=== PATIENT | female | born 1955 | race Caucasian/White ===

== ENCOUNTER 2019-12-05 05:58 | Day surgery (SDC) | payer OTHER, MEDICARE ==
[2019-12-05] MEDS ORDERED: ROPIVACAINE HCL (NAROPIN) /PF 5MG/ML 20ML VIAL IV ONE (05:59)
[2019-12-05] MEDS ORDERED: MIDAZOLAM HCL 2MG/2ML VIAL IV ONE (05:59)
[2019-12-05] MEDS ORDERED: GLYCOPYRROLATE 0.2 MG/ML ML IV ONE (05:59)
[2019-12-05] MEDS ORDERED: LIDOCAINE 2% MDV (20MG/ML) 20ML VIAL IV ONE (05:59)
[2019-12-05] MEDS ORDERED: PROPOFOL 10 MG/ML VIAL IV ONE (05:59)
[2019-12-05] MEDS ORDERED: FENTANYL PF 100MCG/2ML VIAL IV ONE (05:59)
[2019-12-05] MEDS ORDERED: DEXAMETHASONE 4 MG/ML 1ML VIAL IVP ONE (05:59)
[2019-12-05] MEDS ORDERED: *PACU ONLY* KETAMINE HCL 10 MG/ML (20ML) VIAL IV ONE (05:59)
[2019-12-05] MEDS ORDERED: CELECOXIB 100 MG CAPSULE PO ONE (06:00)
[2019-12-05] MEDS ORDERED: VANCOMYCIN 1GM/200ML PREMIX 1 GM/200 ML PIGGYBACK IVPB ONE (06:00)
[2019-12-05] MEDS ORDERED: FAMOTIDINE 20MG TABLET PO ONE (06:00)
[2019-12-05] MEDS ORDERED: METOCLOPRAMIDE 10 MG TABLET PO ONE (06:00)
[2019-12-05] MEDS ORDERED: CEFAZOLIN 2 Gram 2 GM/50 ML BAG IVPB ONE (06:00)
[2019-12-05] MEDS ORDERED: SCOPOLAMINE 1 PATCH TDSY TD ONE (06:00)
[2019-12-05] MEDS ORDERED: ACETAMINOPHEN 500 MG TABLET PO ONE (06:00)
[2019-12-05 06:17] LABS: URINE APPEARANCE CLEAR; URINE BILIRUBIN NEGATIVE (NEGATIVE); URINE BLOOD NEGATIVE (NEGATIVE); URINE COLOR YELLOW; URINE GLUCOSE (UA) NEGATIVE (NEGATIVE); URINE KETONE NEGATIVE (NEGATIVE); URINE LEUKOCYTE ESTERASE SMALL (NEGATIVE); URINE NITRITE NEGATIVE (NEGATIVE); URINE PROTEIN NEGATIVE (NEGATIVE); URINE UROBILINOGEN 0.2 E.U./dL (0.20 - 1.00)
[2019-12-05 06:24] LABS: URINE BACTERIA FEW; URINE EPITHELIAL CELLS 0 - 2 (FEW); URINE RBC 0 - 2 (NONE SEEN); URINE WBC 0 - 2 (0-2/hpf)
[2019-12-05] MEDS ORDERED: RINGERS SOLUTION,LACTATED 1,000 ML IV ONE ×2 (07:05→09:29)
[2019-12-05 07:36] LABS: ABO GROUP A; ANTIBODY SCREEN NEGATIVE (NEGATIVE); RH TYPE POSITIVE
[2019-12-05] MEDS ORDERED: ONDANSETRON 4 MG ODT TABLET SL PRN (08:14)
[2019-12-05] MEDS ORDERED: ACETAMINOPHEN W/ CODEINE 300MG/30MG TABLET PO PRN ×2 (08:14)
[2019-12-05] MEDS ORDERED: KETOROLAC 30 MG/ML VIAL IVP PRN (08:14)
[2019-12-05] MEDS ORDERED: BISACODYL 10 MG SUPP RC PRN (08:14)
[2019-12-05] MEDS ORDERED: METOCLOPRAMIDE 10 MG TABLET PO PRN (08:14)
[2019-12-05] MEDS ORDERED: PROMETHAZINE HCL 25 MG TABLET PO PRN (08:14)
[2019-12-05] MEDS ORDERED: HYDROCODONE/APAP 7.5/325MG TABLET PO PRN (08:14)
[2019-12-05] MEDS ORDERED: MAGNESIUM HYDROXIDE 30 ML UDC PO PRN (08:14)
[2019-12-05] MEDS ORDERED: HYDROMORPHONE HCL 2 MG/ML VIAL IM PRN ×2 (08:14)
[2019-12-05] MEDS ORDERED: NALOXONE 0.4 MG/1 ML VIAL IVP PRN (08:14)
[2019-12-05] MEDS ORDERED: ACETAMINOPHEN 325 MG TAB PO PRN (08:14)
[2019-12-05] MEDS ORDERED: DIPHENHYDRAMINE HCL 25 MG CAPSULE PO PRN (08:14)
[2019-12-05] MEDS ORDERED: HYDROCODONE/APAP 5/325MG TABLET PO PRN ×2 (08:14)
[2019-12-05] MEDS ORDERED: TRAMADOL HCL 50 MG TABLET PO PRN ×2 (08:14)
[2019-12-05] MEDS ORDERED: AL HYDROX/MAG HYDROX 30ML UD PO PRN (08:14)
[2019-12-05] MEDS ORDERED: ACETAMINOPHEN W/ CODEINE 300MG/60MG TABLET PO PRN (08:14)
[2019-12-05] MEDS ORDERED: TRANEXAMIC ACID 1,000 MG/10 ML ML IU ONE (08:44)
[2019-12-05] MEDS ORDERED: BUPIVACAINE 0.5% W/EPI MPF 30 ML VIAL IU ONE (08:44)
[2019-12-05] MEDS ORDERED: VANCOMYCIN HCL 1 GM VIAL IR ONE (08:45)
[2019-12-05] MEDS ORDERED: BUPIVACAINE LIPOSOME 266MG/20ML VIAL IU ONE (08:45)
[2019-12-05] MEDS ORDERED: VANCOMYCIN HCL 1 GM VIAL IU ONE (08:45)
[2019-12-05] MEDS ORDERED: TRANEXAMIC ACID 1,000 MG/10 ML ML IVPB ONE (08:45)
[2019-12-05] MEDS ORDERED: DOCUSATE SODIUM 100 MG CAPSULE PO SCH (10:00)
[2019-12-05] MEDS ORDERED: VANCOMYCIN 500MG/100ML PREMIX 500 MG/100 ML PIGGYBACK IVPB ONE (11:00)
[2019-12-05] MEDS ORDERED: DEXTROSE 5 % AND 0.9 % NACL 1,000 ML IV PRN (11:00)
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
--- NOTE | 2019-12-05 13:51 | Operative Note ---
DATE OF SURGERY: 12/05/2019 PREOPERATIVE DIAGNOSIS: END STAGE RIGHT KNEE ARTHROSIS. POSTOPERATIVE DIAGNOSIS: END STAGE RIGHT KNEE ARTHROSIS. OPERATION: TOTAL RIGHT KNEE ARTHROPLASTY. SURGEON: Raymundo Monge M.D. ANESTHESIA: Spinal. ANESTHESIA PROVIDER: DARION Díaz CRNA COMPLICATIONS: None. BLOOD LOSS: Minimal. TOURNIQUET TIME: Approximately 60 minutes. OPERATIVE FINDINGS: Kffg-[id number]-gisp medial compartment arthrosis. COMPONENTS PLACED: 2 gram Vancomycin cement [employer] Oxinium total knee arthroplasty system size 4 femoral component, size 3 tibial baseplate, 9 mm thick tibial poly insert, and 32 mm cemented patellar component. INDICATIONS FOR OPERATION: This a 64-year-old female who has had persistent pain and dysfunction in her knee for several years. Failed nonoperative treatment and elected to proceed with the procedure noted above. I explained all risks and benefits in detail for the diagnosis and procedure including, but not limited infection, nerve injury, vessel injury, persistent pain, stiffness, numbness, tingling in the knee, periprosthetic fracture, need for resection arthroplasty if components become infected, loosen, nerve injury, vessel injury, blood clot, and need for further procedures. All of her questions were answered. Rehab course was outlined. She agreed to proceed. PROCEDURE: The patient brought to the Operating Room, placed in the supine position after spinal anesthesia was induced. The right lower extremity and knee were prepped and draped in sterile fashion. Right knee was prepped again with ChloraPrep after it was draped. Intraoperative timeout was performed. The leg was exsanguinated with Esmarch. No tourniquet was used. We used Aquamantys electrocautery throughout the entire procedure. We infiltrated with 0.5% Marcaine with Epinephrine, Exparel and tranexamic acid mixture at our incision site and the skin and subcutaneous tissues were dissected down. We incised the capsule along the medial border of the patella to the tibial tubercle. Incised the vastus medialis in line with its fibers in a mid vastus approach. Partially resected the retropatellar fat pad, elevated the capsule subperiosteally and medially, and exposed the distal femur. We resected the ACL, she had [id number] medial compartment arthrosis. Next drilled the intracondylar drill hole and inserted the intramedullary guide vivi, 6-degree cutting block, all aligned off the distal femoral condyles and pinned it in +2 mm position. Next we cut the distal femoral condyles and placed a sizing jig on the distal femoral condyles and sized it to be right on size 4. Through the previously placed pin holes, we placed a size 4m 5-in-1 cutting jig. We dilated the anterior cut so it would come out flush without notching. We cut that cut and it was a good flush cut. We pinned and placed the remainder of the chamfer cuts in the usual fashion. Next, we placed the size 4 femoral component, seated it, pinned it, and then inserted the resection collet, reamed out, and box Osteomed with the cruciate bone block. Next, attention was turned to the tibia, we seated the spikes, external alignment jig in the tubercular groove off the central third tibial tubercle, it was two finger breadths distally off the anterior tibial cortex in reference for a 7 mm cut off the higher lateral plateau. We pinned the cutting jib provisionally to the anterior anterior posterior pins. Next, we rechecked the alignment of the cutting jig using a drop vivi centered on the tibial anatomic axis second metatarsal and then we cross-pinned the cutting jig completing its fixation, and cut the tibia. Next we removed osteophytes off the posterior femoral condyles and checked the flexion/extension gaps and with a 9 mm [place] sizer this allowed for good tight stability with 1-2 mm of varus/valgus laxity in flexion/extension. Overall alignment of the cuts in extension with anatomic valgus laxity. Orientation alignment rods in the hip joint and ankle joint. Next, we took the knee into flexion again. We sized the tibial baseplate to be size 3. We replaced all trial components, set the rotation tibial baseplate again in extension using the alignment vivi centered on the hip joint and ankle joint. We placed pen ye on the anterior cortex off the laser ye of the tibial baseplate. Next attention was turned to the patella. We measured the patella to be 22 mm, we set the cutting jig at 13 mm to allow for a 9 mm thick poly insert. We cut the patella, remeasured it and it was right on 3. It was sized to be 32, medialized as much as possible the other three peg holes, placed a trial patellar component, did trial range of motion and mixed cement. The patella tracked nicely handsfree. Had full extension, flexion to 140-150 degrees, again symmetric flexion/extension gaps. Next we took the knee in flexion, seated the tibial baseplate of the previously placed electrocautery ye, pinned it in place, and drilled out and keel punched the keel hole. We placed a bone plug in the femoral canal hole. We changed gloves and brought in clean sheets. It was copiously irrigated and dried off the bony surfaces with pulse lavage antibiotic solution. We placed the drill bit in the tibial keel punch hole with precut bolsters and then packed down the tibial component first, then the femoral component, removing excess cement, and placed a trial tibial poly liner. We held the knee in extension, clamped down the patellar component, and the cement hardened. Once the cement hardened, we took the knee in flexion, distracted the knee with the bone hook and sponge removing any excess cement off the edges of the components. We injected and irrigated the posterior recess of the posterior capsule and then cauterized again with Aquamantys. Then injected several sticks of our mixture there. Next inserted the real tibial poly insert and verified it was interlocked medially and laterally. Found the range of motion to be the same . We irrigated, and then injected more of the mixture more superficially now with VMO in the quadriceps, patellar quad tendons and periosteum subcutaneous regions. Next we closed the capsule securely with a running #2 Quill suture and flexion. Irrigated, closed the skin deep with several interrupted 2-0 Vicryl, sterile dressing, INEZ applied with Acticoat. The patient tolerated the procedure well. No intraoperative complications. Sponge, needle, and blade counts are correct. Recovery room stable. Neurovascularly intact. She will be discharged as an outpatient. Follow-up in two weeks. JOB [facility]BER: [id number] [facility]
== END 2019-12-05 14:00 | disposition home or self-care (01) ==
LOC: SUR 05:58 → MEDSURG 10:40 → SUR 14:00
PROVIDERS: ATTEND Orthopaedic Surgery
DX: M17.11 Unilateral primary osteoarthritis, right knee (principal); E11.9 Type 2 diabetes mellitus without complications; E78.00 Pure hypercholesterolemia, unspecified; I10 Essential (primary) hypertension; Z79.4 Long term (current) use of insulin; E03.9 Hypothyroidism, unspecified; I65.29 Occlusion and stenosis of unspecified carotid artery; N28.9 Disorder of kidney and ureter, unspecified; Z95.5 Presence of coronary angioplasty implant and graft
CPT/HCPCS: 76942; 81001; 86850; 86900; 86901; C1776; J3370; J7120